=== PATIENT | female | born 1965 | race Caucasian/White ===

== ENCOUNTER → 2017-02-12 | Outpatient (CLI) | payer MEDICAID ==
--- NOTE | 2017-02-15 12:01 | MM ---
Reason for exam: screening (asymptomatic). Last mammogram was performed 1 year ago. History: Patient is postmenopausal. Benign core biopsy of the left breast. Took estrogen for 3 years. Physical Findings: A clinical breast exam by your physician is recommended on an annual basis and results should be correlated with mammographic findings. MG Screening Mammo w CAD Bilateral CC and MLO view(s) were taken. Prior study comparison: February 06, 2016, bilateral MG screening mammo w CAD. October 22, 2014, mammogram, performed at [facility]. The breast tissue is heterogeneously dense. This may lower the sensitivity of mammography. Finding #1: There is a 6 mm equal density mass in the posterior, central position of the left breast. Finding #2: There are typically benign calcifications in both breasts, stable. ASSESSMENT: Incomplete: need additional imaging evaluation, BI-RAD 0 RECOMMENDATION: Special view mammogram of the left breast. If lesion persists on supplemental views, image directed ultrasound is recommended. [facility] will attempt to contact patient to return for supplemental views and ultrasound if indicated.
== END | disposition home or self-care (01) ==
LOC: RADMAMWWP 13:01
PROVIDERS: ATTEND Obstetrics & Gynecology
DX: Z12.31 Encounter for screening mammogram for malignant neoplasm of breast (principal)

== ENCOUNTER → 2017-02-19 | Outpatient (CLI) | payer MEDICAID ==
--- NOTE | 2017-02-22 07:51 | MM ---
Reason for exam: additional evaluation requested from abnormal screening. Last mammogram was performed less than 1 month ago. History: Patient is postmenopausal. Benign core biopsy of the left breast. Taking estrogen for 3 years. Taking progesterone. Physical Findings: Nurse did not find any significant physical abnormalities on exam. MG 3D Work Up W/Cad LT CC, MLO, LM, and ML view(s) were taken of the left breast. Prior study comparison: February 12, 2017, bilateral MG screening mammo w CAD. February 06, 2016, bilateral MG screening mammo w CAD. Finding: There is a persistent 4 mm round mass in the lower outer quadrant, posterior position of the left breast. These results were verbally communicated with the patient and result sheet given to the patient on 02/19/17. ASSESSMENT: Incomplete: need additional imaging evaluation, BI-RAD 0 RECOMMENDATION: Ultrasound of the left breast.
--- NOTE | 2017-02-22 07:52 | USB ---
Reason for exam: additional evaluation requested from abnormal screening. History: Patient is postmenopausal. Benign core biopsy of the left breast. Taking estrogen for 3 years. Taking progesterone. US Breast Workup Limited LT Left breast ultrasound demonstrates a 0.4 x 0.5 x 0.3cm oval lesion too small to characterize at 6 o'clock. These results were verbally communicated with the patient and result sheet given to the patient on 02/19/17. ASSESSMENT: Probably benign, BI-RAD 3 RECOMMENDATION: Follow-up diagnostic mammogram and ultrasound of the left breast in 6 months.
== END | disposition home or self-care (01) ==
LOC: RADMAMWWP 10:55
PROVIDERS: ATTEND Obstetrics & Gynecology
DX: R92.8 Other abnormal and inconclusive findings on diagnostic imaging of breast (principal)
CPT/HCPCS: 76642; G0206; G0279

== ENCOUNTER → 2017-09-22 | Outpatient (CLI) | payer MEDICAID ==
--- NOTE | 2017-09-23 09:34 | MM ---
Reason for exam: follow-up at short interval from prior study. Last mammogram was performed 7 months ago. History: Patient is postmenopausal. Benign core biopsy of the left breast. Taking estrogen for 3 years. Taking progesterone. Physical Findings: Nurse did not find any significant physical abnormalities on exam. MG Diagnostic Mammo LT w CAD CC and MLO view(s) were taken of the left breast. Prior study comparison: February 19, 2017, left breast MG 3d work up w/cad LT. February 12, 2017, bilateral MG screening mammo w CAD. The breast tissue is heterogeneously dense. This may lower the sensitivity of mammography. Previous mammotome biopsy in the left breast. Stable far posterior 6 o'clock nodularity for 6 months. No significant new findings when compared with previous films. These results were verbally communicated with the patient and result sheet given to the patient on 09/22/17. ASSESSMENT: Incomplete: need additional imaging evaluation, BI-RAD 0 RECOMMENDATION: Ultrasound of the left breast.
--- NOTE | 2017-09-23 09:36 | USB ---
Reason for exam: additional evaluation requested from abnormal screening. History: Patient is postmenopausal. Benign core biopsy of the left breast. Taking estrogen for 3 years. Taking progesterone. US Breast LT Left breast ultrasound includes all four quadrants, the retroareolar region and axilla. Finding demonstrates a 0.5 x 0.5 x 0.3cm oval, cystic lesion at 6 o'clock, stable, benign, likely corresponds to the mammographic finding. These results were verbally communicated with the patient and result sheet given to the patient on 09/22/17. ASSESSMENT: Probably benign, BI-RAD 3 RECOMMENDATION: Follow-up diagnostic mammogram of both breasts in 6 months.
== END | disposition home or self-care (01) ==
LOC: RADMAMWWP 14:36
PROVIDERS: ATTEND Obstetrics & Gynecology
DX: R92.8 Other abnormal and inconclusive findings on diagnostic imaging of breast (principal)
CPT/HCPCS: 77065

== ENCOUNTER → 2018-01-14 | Outpatient (CLI) | payer MEDICAID ==
--- NOTE | 2018-01-14 11:32 | US ---
EXAMINATION TYPE: US abdomen limited DATE OF EXAM: 01/14/2018 COMPARISON: NONE CLINICAL HISTORY: R10.11 Right Upper Quad Pain. Nausea and RUQ discomfort for 4-5 weeks EXAM MEASUREMENTS: Liver Length: 14.4 cm Gallbladder Wall: 0.2 cm CBD: 0.3 cm Right Kidney: 10.1 x 4.5 x 5.5 cm Pancreas: visualized portions appear wnl Liver: appears wnl Gallbladder: no evidence of stones Evidence for sonographic Lackey's sign: no CBD: wnl Right Kidney: no evidence of hydronephrosis Cortical medullary differentiation is maintained within the right kidney. IMPRESSION: No significant abnormality evident.
== END | disposition home or self-care (01) ==
LOC: RADUSWWP 08:25
PROVIDERS: ATTEND Surgery
DX: R10.11 Right upper quadrant pain (principal)
CPT/HCPCS: 76705

== ENCOUNTER → 2018-07-08 | Outpatient (CLI) | payer MEDICAID ==
--- NOTE | 2018-07-08 15:08 | MM ---
Reason for exam: follow-up at short interval from prior study. Last mammogram was performed 9 months ago. History: Patient is postmenopausal. Benign core biopsy of the left breast. Taking estrogen for 5 years. Taking progesterone for 5 years. Physical Findings: Nurse did not find any significant physical abnormalities on exam. MG Diagnostic Mammo w CAD ALEXEY Bilateral CC and MLO view(s) were taken. Prior study comparison: September 22, 2017, left breast MG diagnostic mammo LT w CAD. February 19, 2017, left breast MG 3d work up w/cad LT. There are scattered fibroglandular densities. Previous mammotome biopsy in the left breast. No significant new findings when compared with previous films. These results were verbally communicated with the patient and result sheet given to the patient on 07/08/18. ASSESSMENT: Benign, BI-RAD 2 RECOMMENDATION: Routine screening mammogram of both breasts in 1 year.
== END | disposition home or self-care (01) ==
LOC: RADMAMWWP 14:27
PROVIDERS: ATTEND Obstetrics & Gynecology
DX: R92.8 Other abnormal and inconclusive findings on diagnostic imaging of breast (principal)
CPT/HCPCS: 77066